=== PATIENT | female | born 1985 | race Caucasian/White ===

== ENCOUNTER 2021-08-06 14:57 | Outpatient (REF) | payer OTHER, SELFPAY ==
[2021-08-06 16:09] LABS: HCT 40.6 % (36.0-46.0); HGB 12.8 g/dL (11.2-15.7); MCH 31.6 pg (27.0-33.0); MCHC 31.5 % (32.0-36.0); MCV 100.2 fL (80-95); Platelet Count 212 10^3/uL (130-400); RBC 4.05 10^6/uL (3.93-5.22); RDW 12.2 % (11.7-14.6); WBC 7.97 10^3/uL (4.4-10.8)
[2021-08-06 16:17] LABS: Iron 127 ug/dL (50-170); Total Iron Binding Capacity 417 ug/dL (250-450); Transferrin Sat 30 % (15-50)
[2021-08-06 16:29] LABS: Anion Gap 11.1 mmol/L (3-11); BUN 15 mg/dL (7-18); CO2 24.9 mmol/L (21.0-32.0); Calcium 8.3 mg/dL (8.5-10.1); Calculated LDL 93 mg/dL (<100); Chloride 105 mmol/L (98-107); Cholesterol 213 mg/dL (<200); Ferritin 79 ng/mL (8-252); Glucose 90 mg/dL (74-106); HDL Cholesterol 55 mg/dL (40-60); Potassium 4.1 mmol/L (3.5-5.1); Sodium 141 mmol/L (136-145); Triglyceride 326 mg/dL (<150)
== END 2021-08-06 14:58 | disposition home or self-care (01) ==
LOC: NCHCN 14:57
PROVIDERS: Visit Provider Nurse Practitioner Family
DX: Z13.220 Encounter for screening for lipoid disorders (principal); Z00.00 Encounter for general adult medical examination without abnormal findings; G25.81 Restless legs syndrome; Z71.89 Other specified counseling
CPT/HCPCS: 80048; 80061; 85027; 82728; 83540; 83550

== ENCOUNTER 2022-07-29 22:13 | Outpatient (REF) | payer OTHER, SELFPAY ==
[2022-07-29 19:47] LABS: TSH (W/Ref FT4) 1.41 uIU/mL (0.36-3.74)
== END 2022-07-29 22:14 | disposition home or self-care (01) ==
LOC: NCHCN 22:13
PROVIDERS: Visit Provider Nurse Practitioner Family
DX: R63.5 Abnormal weight gain (principal)
CPT/HCPCS: 84443

== ENCOUNTER 2023-02-11 16:41 | Outpatient (REF) | payer OTHER, SELFPAY ==
[2023-02-11 16:12] LABS: Hemoglobin A1C 5.2 % (<5.7)
[2023-02-11 16:24] LABS: ALT 30 U/L (14-59); AST 21 U/L (15-37); Albumin 3.8 g/dL (3.4-5.0); Alkaline Phosphatase 88 U/L (46-116); Anion Gap 10.7 mmol/L (3-11); BUN 15 mg/dL (7-18); Bilirubin, Total 0.3 mg/dL (0.2-1.0); CO2 23.3 mmol/L (21.0-32.0); Calcium 8.9 mg/dL (8.5-10.1); Calculated LDL 141 mg/dL (<100); Chloride 108 mmol/L (98-107); Cholesterol 247 mg/dL (<200); Estimated GFR 74.88 (mL/min/1.73m2); Glucose 88 mg/dL (74-106); HDL Cholesterol 74 mg/dL (40-60); Potassium 3.8 mmol/L (3.5-5.1); Sodium 142 mmol/L (136-145); Total Protein 8.3 g/dL (6.4-8.2); Triglyceride 162 mg/dL (<150)
== END 2023-02-11 16:42 | disposition home or self-care (01) ==
LOC: NCHCN 16:41
PROVIDERS: PCP Nurse Practitioner Family; Visit Provider Nurse Practitioner Family
DX: R63.5 Abnormal weight gain (principal); Z13.220 Encounter for screening for lipoid disorders; Z13.1 Encounter for screening for diabetes mellitus
CPT/HCPCS: 80053; 80061; 83036

== ENCOUNTER 2023-06-23 13:42 | Outpatient (REF) | payer OTHER, SELFPAY ==
[2023-06-23 17:00] LABS: ALT 106 U/L (14-59); AST 40 U/L (15-37); Albumin 3.5 g/dL (3.4-5.0); Alkaline Phosphatase 79 U/L (46-116); BUN 10 mg/dL (7-18); Bilirubin, Total 0.4 mg/dL (0.2-1.0); Calcium 8.9 mg/dL (8.5-10.1); Chloride 105 mmol/L (98-107); Estimated GFR 74.88 (mL/min/1.73m2); Glucose 100 mg/dL (74-106); Hemoglobin A1C 4.9 % (<5.7); Potassium 4.1 mmol/L (3.5-5.1); Sodium 140 mmol/L (136-145); TSH (W/Ref FT4) 0.78 uIU/mL (0.36-3.74); Total Protein 7.7 g/dL (6.4-8.2)
== END 2023-06-23 13:43 | disposition home or self-care (01) ==
LOC: NCHCN 13:42
PROVIDERS: PCP Nurse Practitioner Family; Visit Provider Nurse Practitioner Family
DX: R63.5 Abnormal weight gain (principal); Z68.32 Body mass index [BMI] 32.0-32.9, adult; Z79.899 Other long term (current) drug therapy
CPT/HCPCS: 80053; 83036; 84443

== ENCOUNTER 2023-10-07 12:33 | Outpatient (REF) | payer OTHER, SELFPAY ==
[2023-10-07 20:34] LABS: ALT 85 U/L (14-59); AST 49 U/L (15-37); Albumin 3.4 g/dL (3.4-5.0); Alkaline Phosphatase 67 U/L (46-116); Anion Gap 13.1 mmol/L (3-11); BUN 11 mg/dL (7-18); Bilirubin, Total 0.5 mg/dL (0.2-1.0); CO2 20.9 mmol/L (21.0-32.0); CREATININE 1.1 mg/dL (0.55-1.02); Calcium 9.4 mg/dL (8.5-10.1); Chloride 104 mmol/L (98-107); Estimated GFR 66.78 (mL/min/1.73m2); Glucose 73 mg/dL (74-106); Potassium 3.9 mmol/L (3.5-5.1); Sodium 138 mmol/L (136-145); Total Protein 7.7 g/dL (6.4-8.2)
[2023-10-07 20:37] LABS: Hemoglobin A1C 4.8 % (<5.7)
== END 2023-10-07 12:34 | disposition home or self-care (01) ==
LOC: NCHCN 12:33
PROVIDERS: PCP Nurse Practitioner Family; Visit Provider Nurse Practitioner Family
DX: R74.01 Elevation of levels of liver transaminase levels (principal); Z68.25 Body mass index [BMI] 25.0-25.9, adult; E66.9 Obesity, unspecified
CPT/HCPCS: 80053; 83036

== ENCOUNTER 2024-05-06 13:40 | Outpatient (REF) | payer OTHER, SELFPAY ==
[2024-05-06 16:10] LABS: Abs Immature Grans 0.02 10^3/uL (0.0-0.06); Absolute Basophil Count 0.03 10^3/uL (0.0-0.2); Absolute Eosinophil Count 0.05 10^3/uL (0.0-0.7); Absolute Lymphocyte Count 2.13 10^3/uL (1.2-3.4); Absolute Neutrophil Count 6.09 10^3/uL (1.2-6.7); Basophils % 0.3 %; Eosinophils % 0.6 %; HCT 42.8 % (36.0-46.0); HGB 14.2 g/dL (11.2-15.7); Immature Grans % 0.2 %; Lymphocytes % 24.4 %; MCH 31.4 pg (27.0-33.0); MCHC 33.2 % (32.0-36.0); MCV 95 fL (80-95); MPV 10.9 fL (8.0-11.0); Monocytes % 4.6 %; Neutrophils % 69.9 %; Platelet Count 206 10^3/uL (130-400); RBC 4.52 10^6/uL (3.93-5.22); RDW 12.4 % (11.7-14.6); WBC 8.72 10^3/uL (4.4-10.8)
[2024-05-06 16:27] LABS: ALT 27 U/L (14-59); AST 14 U/L (15-37); Albumin 3.8 g/dL (3.4-5.0); Alkaline Phosphatase 71 U/L (46-116); Anion Gap 10.6 mmol/L (3-11); BUN 10 mg/dL (7-18); Bilirubin, Total 0.52 mg/dL (0.2-1.0); CO2 24.4 mmol/L (21.0-32.0); Calcium 8.6 mg/dL (8.5-10.1); Chloride 104 mmol/L (98-107); Estimated GFR 74.41 (mL/min/1.73m2); FREE T4 0.86 ng/dL (0.76-1.46); Glucose 70 mg/dL (74-106); Potassium 4.2 mmol/L (3.5-5.1); Sodium 139 mmol/L (136-145); TSH 1.54 uIU/Ml (0.36-3.74); Total Protein 7.3 g/dL (6.4-8.2)
== END 2024-05-06 13:41 | disposition home or self-care (01) ==
LOC: NCHCN 13:40
PROVIDERS: PCP Nurse Practitioner Family; Visit Provider Nurse Practitioner Family
DX: R74.01 Elevation of levels of liver transaminase levels (principal); Z68.25 Body mass index [BMI] 25.0-25.9, adult; G43.109 Migraine with aura, not intractable, without status migrainosus
CPT/HCPCS: 80053; 83036; 84439; 84443; 85025

== ENCOUNTER 2025-01-11 09:51 | Emergency (ER) | payer BC, SELFPAY ==
[2025-01-11] VITALS (13 sets, daily range): BP systolic 101–120; BP diastolic 71–84; PULSE 83–113; RESP 11–19; TEMP 37–37.3; O2SAT 96–100
--- NOTE | 2025-01-11 09:45 | RT.EKG_ITS ---
APPROVED REPORT Exam: Resting ECG Reason for Exam: chest pain Patient Location: E HR:87 bpm ECG Measurements Heart Rate 87 AXIS OK 110 P 75 QRSd 87 QRS 76 QT 366 T 48 QTc 440 Conclusion Sinus rhythm...normal P axis, V-rate 60- 99 Probable left atrial enlargement...P >50mS, <-0.10mV V1 I have reviewed and interpreted ECG and agree with software generated interpretation.
--- NOTE | 2025-01-11 10:15 | DI.RAD_ITS ---
Exam(s) XR CHEST 2V PA LATERAL EXAM: XR CHEST 2V PA LATERAL CLINICAL HISTORY: right chest pain. TECHNIQUE: 2D digital imaging was performed. COMPARISON: No exams were available for comparison FINDINGS: 2 views: Heart size is normal. The mediastinum is not widened. Lungs are clear. No infiltrates nor pleural effusions. IMPRESSION: No acute pulmonary findings. DATA REPOSITORY: RADIATION DOSE DELIVERED:
[2025-01-11 10:42] LABS: Abs Immature Grans 0.02 10^3/uL (0.0-0.06); Absolute Basophil Count 0.02 10^3/uL (0.0-0.2); Absolute Eosinophil Count 0.02 10^3/uL (0.0-0.7); Absolute Lymphocyte Count 1.05 10^3/uL (1.2-3.4); Absolute Monocyte Count 0.59 10^3/uL (0.1-0.8); Basophils % 0.3 %; Eosinophils % 0.3 %; HCT 45.7 % (36.0-46.0); HGB 15.2 g/dL (11.2-15.7); Immature Grans % 0.3 %; Lymphocytes % 17.8 %; MCH 31.3 pg (27.0-33.0); MCHC 33.3 % (32.0-36.0); MCV 94 fL (80-95); MPV 9.7 fL (8.0-11.0); Neutrophils % 71.3 %; Platelet Count 167 10^3/uL (130-400); RBC 4.86 10^6/uL (3.93-5.22); RDW 12.3 % (11.7-14.6); RDW-SD 42.7 fL
[2025-01-11] MEDS: ACETAMINOPHEN 500 MG/50 ML BAG 200 MG IVPB (10:46)
[2025-01-11 10:58] LABS: ALT 28 U/L (14-59); AST 18 U/L (15-37); Albumin 3.9 g/dL (3.4-5.0); Alkaline Phosphatase 77 U/L (46-116); Anion Gap 11.8 mmol/L (3-11); BUN 13 mg/dL (7-18); Bilirubin, Total 0.37 mg/dL (0.2-1.0); CO2 25.2 mmol/L (21.0-32.0); CREATININE 1.2 mg/dL (0.55-1.02); Calcium 9.3 mg/dL (8.5-10.1); Chloride 103 mmol/L (98-107); Estimated GFR 59.79 (mL/min/1.73m2); Glucose 83 mg/dL (74-106); Lipase 47 U/L (<78); Magnesium 1.8 mg/dL (1.8-2.4); Potassium 3.6 mmol/L (3.5-5.1); Sodium 140 mmol/L (136-145); Total Protein 8.2 g/dL (6.4-8.2)
[2025-01-11 11:03] LABS: Troponin I 4 ng/L (<or=51)
[2025-01-11 11:18] LABS: D-Dimer 292 ng/mlFEU (<500)
[2025-01-11] MEDS: Ketorolac 15 MG/ML VIAL 7.5 MG IVP (11:50)
[2025-01-11 12:06] LABS: Troponin I < 4 ng/L (<or=51)
--- NOTE | 2025-01-11 14:24 | ED.GENADUL_ITS ---
Discharge Plan Disposition Patient Disposition: Home Discharge Details Clinical Impression: Chest pain Primary Care Provider: Sakina Freeman ED Provider: Julia Beal Home Meds and New Rx's Prescriptions: New orphenadrine citrate 100 mg tablet extended release 100 mg PO BID Qty: 10 0RF Continued semaglutide 0.25 mg or 0.5 mg(2 mg/1.5 mL) pen injector 0.25 mg subcut QWEEK Rx Instructions: for 4 weeks topiramate 50 mg tablet 75 mg PO QHS Qty: 135 3RF hydroxyzine HCl 25 mg tablet See Rx Instructions PO QID PRN (Reason: headache) Qty: 30 1RF Rx Instructions: 25-50mg orally four times a day PRN; rizatriptan 10 mg tablet See Rx Instructions .ROUTE .COMPLEX Qty: 10 6RF Dose Instruction: TAKE ONE TABLET BY MOUTH AT ONSET OF HEADACHE; IF NO RELIEF MAY REPEAT ONE TABLET AFTER AT LEAST 2 HOURS +MAX 2 TABLETS PER DAY+ Rx Instructions: TAKE ONE TABLET BY MOUTH AT ONSET OF HEADACHE; IF NO RELIEF MAY REPEAT ONE TABLET AFTER AT LEAST 2 HOURS +MAX 2 TABLETS PER DAY+ norethindrone-e.estradiol-iron [Microgestin Fe 1.5/30 (28)] 1.5 mg-30 mcg (21)/75 mg (7) tablet 1 tab PO DAILY Patient Comments: TAKE ONE TABLET BY MOUTH EVERY DAY Discharge Instructions Instructions: Chest Pain (DC) Additional Instructions: Take Motrin 4 to 600 mg every 8 hours with food as needed for pain you may take Tylenol 650 every 6 hours for breakthrough pain You may take the orphenadrine, do not combine with alcohol Please be reevaluated by your primary care physician in 24 to 48 hours for reassessment and return earlier should you have new or worsening complaints including shortness of breath or worsening pain Your troponin, heart enzyme, and remainder of blood work and imaging are all within normal limits which is reassuring If you start to have any respiratory symptoms I would recommend checking a COVID or flu test Your creatinine level is slightly elevated, please have this rechecked when you have routine labs and make sure you are having at least eight 8 ounce glasses of water a day Referrals: Sakina Freeman [Primary Care Provider] - 2 days Discharge Data Discharge Date/Time-TO BE ENTERED AT DEPARTURE: 01/11/25 12:44 HPI General Date/Time Provider Initiated Documentation: 01/11/25 10:05 . HPI Narrative: The patient is a 39-year-old female who presents with a report of chest pain that started on Thursday of this week. She describes the pain as intermittent, radiating through to her back, and not associated with any known exacerbating or alleviating factors. She reports no recent upper respiratory symptoms or hemoptysis. She reports no fever or chills, position change, or trauma. She has no history of tobacco use, illicit substance use, or chance of . She does take oral contraceptives or estrogen and just returned from [place] on , it was a short trip for patient. Her father has a history of coronary artery disease and chest pain has completely resolved after the nitro. Unsure of age of onset. Related Data Home Medications ?Medication ?Instructions ?Recorded ?Confirmed semaglutide 0.25 mg or 0.5 mg (2 0.25 mg subcut QWEEK 05/27/23 01/11/25 mg/1.5 mL) subcutaneous pen injector hydroxyzine HCl 25 mg tablet See Rx Instructions PO QID PRN 11/30/23 01/11/25 headache #30 tabs topiramate 50 mg tablet 75 mg (1.5 x 50 mg) PO QHS #135 12/30/23 01/11/25 tabs rizatriptan 10 mg tablet See Rx Instructions .Route 08/02/24 01/11/25 .COMPLEX #10 tabs norethindrone 1.5 mg-ethinyl 1 tab PO DAILY 01/11/25 01/11/25 estradiol 30 mcg(21)/iron 75 mg(7) tablet (Microgestin Fe 1.5/30 (28)) orphenadrine citrate 100 mg 100 mg PO BID #10 tabs 01/11/25 tablet,extended release Previous Rx's ?Medication ?Instructions ?Recorded hydroxyzine HCl 25 mg tablet See Rx Instructions PO QID PRN 11/30/23 headache #30 tabs topiramate 50 mg tablet 75 mg (1.5 x 50 mg) PO QHS #135 12/30/23 tabs rizatriptan 10 mg tablet See Rx Instructions .Route 08/02/24 .COMPLEX #10 tabs orphenadrine citrate 100 mg 100 mg PO BID #10 tabs 01/11/25 tablet,extended release Allergies Allergy/AdvReac Type Severity Reaction Status Date / Time penicillin V Allergy Severe Other (See Verified 01/11/25 09:58 Comment) General Stated Complaint: Chest Pain HARMEET: 3 Exam Narrative Exam Narrative: Patient is alert and oriented, in no acute distress. Lungs are clear to auscultation. Cardiac rate and rhythm are regular. Distal pulses are intact. Mild tenderness over trapezius on left no chest wall tenderness no crepitus no abdominal bruit or pulsatile mass distal pulses intact No tenderness or calf swelling or pain appreciated on exam. Patient is speaking in complete sentences. Course Vital Signs Vital signs: Vital Signs Temperature 37.3 C 01/11/25 09:54 Pulse 113 H 01/11/25 09:54 Respiratory Rate 18 01/11/25 09:54 Blood Pressure 112/81 01/11/25 09:54 Pulse Oximetry 96 01/11/25 09:54 Temperature 37.0 C 01/11/25 12:42 Pulse 87 01/11/25 12:42 Pulse 87 01/11/25 11:00 Respiratory Rate 18 01/11/25 12:42 Respiratory Effort Normal, Non-Labored 01/11/25 10:09 Respiratory Depth Normal 01/11/25 10:09 Respiratory Pattern Normal 01/11/25 10:09 Blood Pressure 101/71 01/11/25 12:42 Blood Pressure Mean 90 01/11/25 10:31 Pulse Oximetry 99 01/11/25 12:42 Pain Level 0 01/11/25 12:42 Lab/Test Results Lab/Test Results: Laboratory Tests Range/Units 01/11/25 01/11/25 01/11/25 10:32 11:42 13:22 WBC (4.4-10.8) 10^3/uL 5.90 RBC (3.93-5.22) 10^6/uL 4.86 Hgb (11.2-15.7) g/dL 15.2 Hct (36.0-46.0) % 45.7 MCV (80-95) fL 94 MCH (27.0-33.0) pg 31.3 MCHC (32.0-36.0) % 33.3 RDW (11.7-14.6) % 12.3 Plt Count (130-400) 10^3/uL 167 MPV (8.0-11.0) fL 9.7 Immature Gran % % 0.3 Neutrophils % % 71.3 Lymphocytes % % 17.8 Monocytes % % 10.0 Eosinophils % % 0.3 Basophils % % 0.3 Nucleated RBC % (0.0-0.3) % 0.0 Absolute Neutrophils (1.2-6.7) 10^3/uL 4.20 Absolute Lymphocytes (1.2-3.4) 10^3/uL 1.05 L Absolute Monocytes (0.1-0.8) 10^3/uL 0.59 Absolute Eosinophils (0.0-0.7) 10^3/uL 0.02 Absolute Basophils (0.0-0.2) 10^3/uL 0.02 D-Dimer (<500) ng/mlFEU 292 Sodium (136-145) mmol/L 140 Potassium (3.5-5.1) mmol/L 3.6 Chloride (98-107) mmol/L 103 Carbon Dioxide (21.0-32.0) mmol/L 25.2 Anion Gap (3-11) mmol/L 11.8 H BUN (7-18) mg/dL 13 Creatinine (0.55-1.02) mg/dL 1.2 H Est GFR (CKD-EPI 2020) (mL/min/1.73m2) 59.79 Glucose (74-106) mg/dL 83 Calcium (8.5-10.1) mg/dL 9.3 Magnesium (1.8-2.4) mg/dL 1.8 Total Bilirubin (0.2-1.0) mg/dL 0.37 AST (15-37) U/L 18 ALT (14-59) U/L 28 Alkaline Phosphatase (46-116) U/L 77 Troponin I (<or=51) ng/L 4 < 4 Cancelled Total Protein (6.4-8.2) g/dL 8.2 Albumin (3.4-5.0) g/dL 3.9 Lipase (<78) U/L 47 POC- Test(urine) Negative Medical Decision Making Laboratory Studies Negative troponins. D-dimer within normal limits. Imaging Chest x-ray reassuring per radiology interpretation and my review. Initial Assessment: 39-year-old female with chest pain starting on day, intermittent, radiating to back, no fever, chills, or recent upper respiratory symptoms. No exacerbating or alleviating factors identified. No history of tobacco, illicit substance use, or . Takes oral contraceptives, recently traveled. Differential Diagnosis: - Musculoskeletal pain: Suspected due to lack of other findings. Plan to prescribe orphenadrine, encourage Motrin and Tylenol. - Atypical chest pain: Considered due to negative troponins, normal D-dimer, and reassuring chest x-ray. Plan for close outpatient reassessment. ED Course: - Negative troponins. - D-dimer within normal limits. - Chest x-ray reassuring per radiology interpretation and my review. - Orphenadrine prescribed. - Encouraged use of Motrin and Tylenol as needed. - Return precautions reviewed and patient expressed understanding. Final Assessment: Patient with chest pain likely musculoskeletal or atypical in nature. Negative troponins, normal D-dimer, and reassuring chest x-ray. Treatment includes orphenadrine, Motrin, and Tylenol with close outpatient reassessment. Clinical Impression: - Musculoskeletal pain - Atypical chest pain Disposition: - Discharge - Follow-Up: Close outpatient reassessment advised. MDM Components Evaluation: - Number of Differential Diagnoses or Management Options: Musculoskeletal pain, Atypical chest pain - Amount and Complexity of Data Reviewed: Troponins, D-dimer, chest x-ray - Risk of Complication and Morbidity or Mortality: Low risk due to negative troponins, normal D-dimer, and reassuring chest x-ray. Quality:SDOH Health Related Social Needs: No Data to Display PFSH All Active Problems (Updated 01/11/25 @ 12:09 by KATJA Frazier) Chest pain (Acute) Migraine (Chronic) Medical History Restless leg syndrome Breast mass in female Skin lesion of face Weight gain Social History Smoking/Tobacco Use Status: Never Smoking risk assessment performed?: Yes Alcohol Intake: current Alcohol Intake frequency: holidays/special occasions only Alcohol type: beer, wine and hard liquor Drug use: Rarely Substance use type: does not use PAWSS Have you Been Recently Intoxicated or Drunk Within the Last 30 days?: No Have you Ever Experienced Previous Episodes of Alcohol Withdrawal?: No Have you ever Experienced Withdrawal Seizures?: No Have you ever Experienced Delirium Tremens(DT)s?: No Have you ever undergone Alcohol Rehabilitation Treatment (i.e, inpt ot outpatient treatment programs)?: No Have you ever Experienced Blackouts?: No Have you ever Combined Alcohol with other Downers within the last 90 days?: No Have you ever Combined Alcohol with any other Substance of Abuse during the last 90 days?: No Positive Blood Alcohol level on Presentation? [PCS.BAL]: No Evidence of Increased Autonomic Activity (i.e. HR>120, tremor, sweating, agitation, nausea)?: No Result: 0
--- NOTE | 2025-01-12 06:55 | NUR.NOTE ---
Access chart to reconcile EKG orders with EKG's in [facility]. Duplicate order cancelled. Nursing Note:
== END 2025-01-11 12:44 | disposition home or self-care (01) ==
PROVIDERS: Emergency Provider Physician Assistant; PCP Nurse Practitioner Family
DX: R07.9 Chest pain, unspecified (principal); R42 Dizziness and giddiness; Z82.49 Family history of ischemic heart disease and other diseases of the circulatory system; Z79.899 Other long term (current) drug therapy
CPT/HCPCS: 36415; 80053; 81025; 83690; 93005; 96374; 96375; 99284; 71046; 83735; 84484; 85025; 85379; 93010; J0131; J1885